=== PATIENT | female | born 1995 | race Caucasian/White ===

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

== ENCOUNTER → 2017-07-12 | Outpatient (CLI) | payer BC ==
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
== END | disposition home or self-care (01) ==
LOC: RADXRYALE 15:02
PROVIDERS: ATTEND Physician Assistant
DX: M25.571 Pain in right ankle and joints of right foot (principal)

== ENCOUNTER 2019-08-04 12:59 | Emergency (ER) | payer BC ==
[2019-08-04 13:05] VITALS: BP 124/71; PULSE 76; RESP 16; TEMP 99
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
--- NOTE | 2019-08-04 13:44 | XR ---
EXAMINATION TYPE: XR elbow complete LT , 3 VIEWS DATE OF EXAM ORDERED: 08/04/2019 HISTORY: pain. COMPARISON: None. FINDINGS: There is a linear radiopaque foreign body projecting along the medial aspect of the proxim al arm. There is an undisplaced fracture of the olecranon extending intra-articularly. There is a small assoc iated elbow joint effusion. No definite radial fracture is seen. IMPRESSION: 1. RADIOPAQUE FOREIGN BODY MAY BE ON THE SKIN OR IN THE PATIENT'S CLOTHING. 2. I AM STRONGLY SUSPICIOUS OF AN OLECRANON FRACTURE. A CT SCAN OF THE ELBOW MAY BE WORTHWHILE.
[2019-08-04] MEDS ORDERED: ACET/COD 300 MG/30 MG STARTER PACK 6 TAB BTL PO STA (13:56)
== END 2019-08-04 14:01 | disposition home or self-care (01) ==
LOC: EC 12:59
DX: S52.032A Displaced fracture of olecranon process with intraarticular extension of left ulna, initial encounter for closed fracture (principal); Y04.8XXA Assault by other bodily force, initial encounter
CPT/HCPCS: 29105; 99283